=== PATIENT | female | born 1990 | race Caucasian/White ===

== ENCOUNTER 2017-11-18 10:31 | Outpatient (CLI) | payer BC ==
[2017-11-18] VITALS (18 sets, daily range): BP systolic 113–132; BP diastolic 77–94
== END 2017-11-18 23:59 | disposition home or self-care (01) ==
LOC: CARD DIAG 10:31
PROVIDERS: ATTEND Family Medicine
DX: R55 Syncope and collapse (principal); Z87.891 Personal history of nicotine dependence
CPT/HCPCS: 93660